=== PATIENT | female | born 1985 | race Two or more races ===

== ENCOUNTER 2024-08-16 07:36 | Emergency (ER) | payer MEDICAID, SELFPAY ==
[2024-08-16 07:36] VITALS: BMI 30.9
[2024-08-16 07:44] VITALS: BP 127/86; PULSE 91; RESP 17; TEMP 36.8; O2SAT 96
--- NOTE | 2024-08-16 07:58 | XR_ITS ---
Examination: Complete OB ultrasound, less than 14 weeks, transabdominal Date and time of exam: August 16, 2024 1015 hours INDICATIONS: Onset left-sided pelvic pain today Technique: Obstetrical ultrasound images less than 14 weeks performed via transabdominal imaging Findings: A normal shaped single intrauterine gestation is present in the uterus. Uterus 13.8 cm pole 1.6 cm corresponds to 8 weeks 0 days gestational age Cardiac motion 155 BPM Ultrasonographic survey of visible and placental structures unremarkable. Amniotic fluid volume appears appropriate for this estimated gestational age. Right ovary 2.7 x 3.1 cm arterial flow Left ovary 3.9 x 3.4 cm arterial flow 26 mm corpus luteum cyst IMPRESSION: Viable intrauterine gestation 8 weeks 0 days
[2024-08-16] MEDS: ACETAMINOPHEN 500 MG TABLET 1000 MG PO (08:10)
[2024-08-16] MEDS: PROMETHAZINE/DM SYRUP 5 ML DOSE PO (08:10)
--- NOTE | 2024-08-16 08:13 | PC.NURSE ---
CALLED RT AT THIS TIME TO REQUEST TREATMENT, STATES HE WILL COME ADMINISTER IT.
[2024-08-16 08:25] VITALS: PULSE 89
[2024-08-16] MEDS: ALBUTEROL RT 2.5 MG/0.5 ML NEBU INH (08:25)
[2024-08-16] MEDS: SODIUM CHLORIDE RT SOL 0.9% 3 ML NEBU INH (08:25)
[2024-08-16 08:28] VITALS: PULSE 83; RESP 16; O2SAT 99
[2024-08-16 08:44] LABS: Basophils % (Auto) 0 % (0-2.5); Eosinophils # (Auto) 0.1 Thou/mm3 (0.0-0.5); Eosinophils % (Auto) 1 % (0-10); Hemoglobin 12.6 g/dL (12.0-16.0); Immature Granulocytes % (Auto) 0 % (0-0); Immature Granulocytes Auto 0.02 Thou/mm3 (0.00-0.00); Lymphocytes # (Auto) 2.3 Thou/mm3 (1.0-4.8); Lymphocytes % (Auto) 28 % (10-50); Mean Corpuscular Hemoglobin 31.6 pg (25.0-35.0); Mean Corpuscular Volume 90 fL (80-100); Monocytes # (Auto) 0.4 Thou/mm3 (0.0-0.8); Monocytes % (Auto) 4 % (0-12); Neutrophils # (Auto) 5.3 Thou/mm3 (1.8-7.7); Neutrophils % (Auto) 66 % (37-80); Nucleated Red Blood Cell % 0 /100 WBC (0); Platelet Count 324 Thou/mm3 (140-440); RDW Standard Deviation 42.5 fL (36.4-46.3); Red Blood Count 3.99 Miln/mm3 (4.00-5.20); White Blood Count 8.1 Thou/mm3 (3.6-11.0)
[2024-08-16 09:05] LABS: Alanine Aminotransferase 11 U/L (10-49); Albumin, Serum 4.3 gm/dL (3.5-5.0); Albumin/Globulin Ratio 1.5 (1.2-2.2); Alkaline Phosphatase 52 U/L (46-116); Anion Gap 9 (7-16); Aspartate Amino Transferase 10 U/L (0-34); BUN/Creatinine Ratio 16 Ratio (12-20); Bilirubin,Total 0.3 mg/dL (0.3-1.2); Blood Urea Nitrogen 8 mg/dL (9-23); Calcium 9.7 mg/dL (8.3-10.6); Calcium (Corrected) 9.7 mg/dL (8.5-10.1); Carbon Dioxide 24.7 mMol/L (20.0-31.0); Chloride 105 mMol/L (98-107); Creatinine (Component) 0.5 mg/dL (0.6-1.3); Estimated Creatinine Clearance 160.8 mL/min (>60); Globulin 2.8 gm/dL (2.3-3.5); Glucose 128 mg/dL (74-106); Osmolality,Calculated 277 (275-295); Potassium 3.8 mMol/L (3.4-5.1); Sodium 139 mMol/L (136-145); Total Protein 7.1 gm/dL (5.7-8.2); eGFR > 60 See Note
--- NOTE | 2024-08-16 09:06 | EDNOTE_ITS ---
Upper Respiratory Inf. RME/HPI General Chief Complaint: Shortness of Breath/Dyspnea Stated Complaint: COUGH/SOBX1 DAY Time Seen by Provider: 08/16/24 07:43 Source: patient Arrival date/time: 08/16/24 07:36 This is a 38-year-old female who presents to the emergency department with complaints of cough and shortness of breath x 1 day. She does report that she developed a cough on Tuesday and since then has been coughing intermittently. Has coughing spells that has led to upper chest pain and shortness of breath. Denies any history of asthma. Does report she stop smoking 2 months ago due knowledge and she was . She does report 3 para 2 A0. Does report she is having some mild tenderness to her pelvic area is unsure if it is due to the coughing spells. Denies fever, chills no dysuria no vaginal bleeding. Mode of arrival: ambulatory Limitations: no limitations Related Data Previous Rx's ?Medication ?Instructions ?Recorded azithromycin 250 mg tablet See Rx Instructions PO .COM PLEX #6 08/16/24 (Zithromax Z-Navarro) tabs albuterol sulfate 90 mcg/actuation 2 puff inhalation Q 6H PRN 08/17/24 aerosol inhaler (Ventolin HFA) shortness of breath or wheezing #8.5 grams amoxicillin 500 mg capsule 500 mg PO BID 5 days #10 ca ps 08/17/24 Allergies Allergy/AdvReac Type Severity Reaction Status Date / Time No Known Allergies Allergy Verified 08/16/24 07:39 Review of Systems Review of Systems Systems Reviewed: All systems reviewed, normal except as documented Narrative Review of Systems: Gen: No fever, no chills, no weight loss EYES: No discharge, no visual changes, no pain HEENT: No ear pain, no congestion, no sore throat PULM: +shortness of breath, + cough, no congestion CV: No chest pain, no dyspnea on exertion, no palpitations GI: No nausea, no vomiting, no diarrhea, no pain, no constipation : No frequency, no urgency, no dysuria Musc/skel: No joint pain, no back pain Skin: No rash Psyc: No hallucinations, no depression Heme/Lymph: No easy bleeding or bruising tendencies Neuro: No weakness, no headache ED Exam General Limitations: Present no limitations General appearance: Present alert and in no apparent distress Head Head exam: Present atraumatic Eye Eye exam: Present normal appearance, PERRL and EOMI ENT ENT exam: Present normal exam, normal oropharynx and mucous membranes moist Neck Neck exam: Present normal inspection, full ROM and trachea midline Chest Chest inspection: Present normal inspection and symmetric chest wall rise; Absent tenderness or rash Respiratory Respiratory exam: Present wheezes Expanded Respiratory Exam Location: Left: wheezes (Very mild wheeze.), Right: wheezes (Very mild wheeze.) and Upper: wheezes (Very mild wheeze.) Cardiovascular Cardiovascular exam: Present regular rate, normal rhythm and normal heart sounds Abdominal Exam Abdominal exam: Present soft and normal bowel sounds Extremities Exam Extremities exam: Present normal inspection and full ROM Back Exam Back exam: Present normal inspection and full ROM Neurological Exam Neurological exam: Present alert, oriented X3 and CN II-XII intact Psychiatric Psychiatric exam: Present normal affect and normal mood Skin Skin exam: Present warm, dry, intact and normal color Course Quality Measures none Orders Category Date Time Status US OB <= 14 weeks fetus Stat Exams 08/16/24 07:58 Completed ABO/RH Type Stat Lab 08/16/24 08:19 Completed Beta HCG,Quantitative Stat Lab 08/16/24 08:19 Completed CBC Stat Lab 08/16/24 08:19 Completed Comprehensive Metabolic Panel Stat Lab 08/16/24 08:19 Completed Urinalysis Stat Lab 08/16/24 11:10 Completed Urine Culture Stat Lab 08/16/24 11:10 Received ALBUTEROL RT 0.5ml [Proventil Rt 0.5ml] Med 08/16/24 07:58 Discontinued 2.5 mg INH X1 ONE Acetaminophen Tab [Tylenol ES Tab] Med 08/16/24 08:02 Discontinued 1,000 mg PO X1 ONE Ondansetron Odt [Zofran Odt] Med 08/16/24 09:53 Discontinued 4 mg PO X1 ONE Promethazine/Dextromethorph [Phenergan Dm Syrup] Med 08/16/24 08:03 Discontinued 5 ml PO X1 ONE Sodium Chloride Rt Jessica 0.9% [NS Rt Jessica 0.9%] Med 08/16/24 07:58 Discontinued 3 ml INH PRN PRN Vital Signs Vital signs: Vital Signs Temperature 98.3 F 08/16/24 07:44 Pulse Rate 91 08/16/24 07:44 Respiratory Rate 17 08/16/24 07:44 Blood Pressure 127/86 H 08/16/24 07:44 Pulse Oximetry (%) 96 08/16/24 07:44 Oxygen Delivery Method Room Air 08/16/24 07:44 Upper Respiratory Infection MDM Narrative MDM Narrative:: 8-year-old female presents to the emergency department with complaints of coughing for 1 week patient reports that coughing spells has made her chest hurt. She is currently 8 weeks of gestation. Mild lower abdominal pain I did obtain some simple labs and ultrasound. All her results were reassuring. Patient ultrasound demonstrates viable uterine . She did receive a breathing treatment cough syrup which improved her symptoms. No hypoxemia vital signs stable. I will discharge patient treatment of bronchitis. Patient data External records reviewed:: [facility] previous records Clinical information provided by:: patient Social determinants that could affect healthcare access:: none Patient has the following chronic illnesses:: None How is presenting disease/condition affected by chronic disease/condition?: no chronic disease Evaluation data The following diagnostics were reviewed and interpreted by me:: lab results and radiology exam(s) Lab and/or radiology exams considered but not ordered:: Chest x-ray however the patient is . Lung sounds mild wheeze however no rhonchi or crackles significa for pneumonia. Interpretation Summary: Examination: Complete OB ultrasound, less than 14 weeks, transabdominal Date and time of exam: August 16, 2024 1015 hours INDICATIONS: Onset left-sided pelvic pain today Technique: Obstetrical ultrasound images less than 14 weeks performed via transabdominal imaging Findings: A normal shaped single intrauterine gestation is present in the uterus. Uterus 13.8 cm pole 1.6 cm corresponds to 8 weeks 0 days gestational age Cardiac motion 155 BPM Ultrasonographic survey of visible and placental structures unremarkable. Amniotic fluid volume appears appropriate for this estimated gestational age. Right ovary 2.7 x 3.1 cm arterial flow Left ovary 3.9 x 3.4 cm arterial flow 26 mm corpus luteum cyst IMPRESSION: Viable intrauterine gestation 8 weeks 0 days Medications / Prescriptions Medications or Prescriptions considered but not ordered:: No Medication administrations:: Medication Administration History Discontinued Medications Acetaminophen (Acetaminophen 500 Mg Tablet) 1,000 mg PO X1 ONE Stop: 08/16/24 08:03 Last Admin: 08/16/24 08:10 Dose: 1,000 mg Documented By: TM Albuterol (Albuterol Rt 2.5 Mg/0.5 Ml Nebu) 2.5 mg INH X1 ONE Stop: 08/16/24 07:59 Last Admin: 08/16/24 08:25 Dose: 2.5 mg Documented By: Ondansetron HCl (Ondansetron Odt 4 Mg Tabrap) 4 mg PO X1 ONE; Protocol Stop: 08/16/24 09:54 Last Admin: 08/16/24 10:59 Dose: 4 mg Documented By: TM Promethazine HCl/Dextromethorphan (Promethazine/Dm Syrup 5 Ml Dose) 5 ml PO X1 ONE; Protocol Stop: 08/16/24 08:04 Last Admin: 08/16/24 08:10 Dose: 5 ml Documented By: FLORINDA Sodium Chloride (Sodium Chloride Rt Jessica 0.9% 3 Ml Nebu) 3 ml INH PRN PRN PRN Reason: SOLN Stop: 09/15/24 07:57 Last Admin: 08/16/24 08:25 Dose: 3 ml Documented By: MR All medications administered and effective Consultations Consultation(s) initiated? (list below): No Diagnosis Upper Respiratory Differential Diagnosis: upper respiratory infection, otitis media, sinusitis, viral infection, bronchitis and other (UTI, threatened .) Most likely diagnosis given after review of the tests above:: Most likely bronchitis Admission Indicated Admission indicated?: not indicated Admission Request Was there a request for admission?: No Disposition Plan Disposition Plan: Discharge Discharge Attestation Discharge Attestation: The patient and all family members were given an opportunity to ask questions and understood the discharge instructions. Discharge instructions specifically effects, indications for sooner follow up or return to the emergency department, and the expected course of current diagnosis. Patient condition: Stable Discharge Plan Plan Patient Disposition: HOME (Self Care) Prescriptions/Referrals Prescriptions/Med Rec: New azithromycin [Zithromax Z-Navarro] 250 mg tablet See Rx Instructions .ROUTE .COMPLEX Qty: 6 0RF Rx Instructions: For 250 mg dose pack: take 500 mg today (day 1), then 250 mg for 4 days (days 2-5) albuterol sulfate [Ventolin HFA] 90 mcg/actuation HFA aerosol inhaler 2 puff inhalation Q6H PRN (Reason: shortness of breath or wheezing) Qty: 8.5 0RF amoxicillin 500 mg capsule 500 mg PO BID 5 Days Qty: 10 0RF Discontinued azithromycin 250 mg tablet See Rx Instructions .ROUTE .COMPLEX Qty: 6 0RF Rx Instructions: For 250 mg dose pack: take 500 mg today (day 1), then 250 mg for 4 days (days 2-5) Referrals: Yessi Vieyra FNP [Primary Care Provider] - In 1 week Problem List Clinical Impression: URI with cough and congestion Patient/Caregiver Discharge Instructions Discharge Activity: activity as tolerated Education Materials: ED URI, Viral, No Abx (Adult) Additional Instructions: You can continue to take cough medication as directed. Tylenol for pain or fever. Make sure you follow-up with your primary doctor Drink plenty of fluids. Return to the emergency department is any worsening symptoms change in condition. Print Language: Turkmen Stand Alone Forms: Michelle Award Info., Patient Portal Info Letter ASTRID/GELA Supervising Physician ASTRID/GELA Supervising Physician: Dr Austin
[2024-08-16 09:38] LABS: Beta HCG,Quantitative 67860 mIU/mL (<5.0)
[2024-08-16] MEDS: ONDANSETRON ODT 4 MG TABRAP PO (10:59)
[2024-08-16 11:14] LABS: Collection Type, Urine Clean Catch
[2024-08-16 11:19] LABS: Bilirubin,Urine Negative (Negative); Blood,Urine Negative (Negative); Clarity,Urine Clear (Clear/Hazy); Color,Urine Lt-Yellow (Lt Yel-Yel); Glucose, Urine Negative (Negative); Ketones,Urine Negative (Negative); Leukocyte Esterase,Urine Negative (Negative); Nitrite,Urine Negative (Negative); PH,Urine 6.5 (5.0-7.0); Protein,Urine Negative (Neg - Trace); RBC,Urine 1 /hpf (0-3); Specific Gravity,Urine 1.008 (1.001-1.035); Squamous Epithelial Cell,Urine 1 /hpf (0-5); Urobilinogen,Urine Negative mg/dL (0.0-1.0); WBC,Urine 1 /hpf (0-5)
== END 2024-08-16 11:24 | disposition home or self-care (01) ==
PROVIDERS: Nurse Practitioner Primary Care; Emergency Provider Emergency Medicine; PCP Nurse Practitioner Family
DX: O99.511 Diseases of the respiratory system complicating pregnancy, first trimester (principal); J06.9 Acute upper respiratory infection, unspecified; O26.891 Other specified pregnancy related conditions, first trimester; R10.2 Pelvic and perineal pain; Z87.891 Personal history of nicotine dependence; Z3A.08 8 weeks gestation of pregnancy
CPT/HCPCS: 36415; 76801; 80053; 81001; 84702; 85025; 86900; 86901; 87086; 94640; 99284; Q0162; A9270

== ENCOUNTER → 2024-10-04 | Outpatient (CLI) | payer MEDICAID, SELFPAY ==
--- NOTE | 2024-10-04 12:04 | XR_ITS ---
Examination: Complete OB ultrasound greater than 14 weeks Date and time of exam: October 04, 2024 1219 hrs. Indications: Unknown size and dates Findings: Viable intrauterine single fetus with single amniotic sac presentation cephalic spine posterior Cardiac motion 136 BPM Placenta anterior grade 1 Umbilical cord insertion seen Cervix 4.0 cm closed Right ovary 2.8 cm arterial flow Left ovary 3.91 arterial flow, 20 mm cyst Composite estimated gestational age based on BPD, head circumference, abdominal circumference, femur length is 15 weeks 6 days Estimated weight 133 g. Survey of intracranial anatomy, spinal anatomy, abdominal anatomy, four-chamber heart performed with no abnormalities identified. Impression: Viable intrauterine gestation 15 weeks 6 days Estimated weight 133 g.
== END | disposition home or self-care (01) ==
LOC: SDIM 11:55
PROVIDERS: PCP Obstetrics & Gynecology; Referring Provider Obstetrics & Gynecology; Visit Provider Obstetrics & Gynecology
DX: O26.841 Uterine size-date discrepancy, first trimester (principal); Z3A.15 15 weeks gestation of pregnancy
CPT/HCPCS: 76805

== ENCOUNTER 2025-03-04 09:04 | Outpatient (AMB) | payer MEDICAID, SELFPAY ==
[2025-03-04 09:15] VITALS: BP 112/75; PULSE 101; RESP 16; TEMP 36.2; O2SAT 98; BMI 34.7
--- NOTE | 2025-03-04 09:15 | AMB.OBINITIA ---
Vital Signs 03/04/25 09:15 Height 1.63 m Height Method Stated Weight 92.306 kg Weight Measurement Method Standing Scale BMI 34.7 BP 112/75 Blood Pressure Source Automatic Cuff Blood Pressure Location Left Upper Arm Position Sitting Respiration 16 Pulse 101 H Pulse Source Monitor Temp 97.2 F Temp Source Oral Pulse Oximetry (%) 98 Oxygen Delivery Method Room Air Allergies/Home Meds Allergies & Medications Allergies No Known Allergies Allergy (Verified 03/04/25 09:16) Medication Reconciliation azithromycin 250 mg tablet (Zithromax Z-Navarro) See Rx Instructions PO .COMPLEX #6 tabs 08/16/24 [Rx Confirmed 03/04/25] albuterol sulfate 90 mcg/actuation aerosol inhaler (Ventolin HFA) 2 puff inhalation Q6H PRN shortness of breath or wheezing #8.5 grams 08/17/24 [Rx Confirmed 03/04/25] Intake Visit Data Collection New Patient or Established: Established Patient (seen at [facility] within 3 years) Reason for Visit:: OB TRANSFR RECORDS GIVEN TO STELLA Seen by Clinical Staff ONLY (RN/MA): No Multi Operation Forming Machine Setter Required: No Do You Feel Safe at Home: Yes Authorities Contacted: N/A PCP or OBGYN visit in last 3 months: Yes Hx Now: Yes Are you currently on any form of Control: No Last menstrual period: 06/12/24 Pain Present Currently: No Pain Scale Used: Schrader-Rogers/Numerical Pain scale:: 0 Smoking Status Smoking Status: Never smoker Questionnaires Covid-19 Vaccine Questionnaire Has patient been vacinated for Covid-19 Have you been vacinated for Covid-19: Yes PHQ-9 PHQ-2 Over the last 2 weeks, how often have you been bothered by any of the following problems? 1. Little interest or pleasure in doing things: not at all 2. Feeling down, depressed, or hopeless: not at all Total score: 0 PHQ-9 3. Trouble falling or staying asleep, or sleeping too much: Not at all 4. Feeling tired or having little energy: Not at all 5. Poor appetite or overeating: Not at all 6. Feeling bad about yourself - or that you are a failure or have let yourself or your family down: Not at all 7. Trouble concentrating on things, such as reading the newspaper or watching television: Not at all 8. Moving or speaking so slowly that other people could have noticed? - Or the opposite - being so fidgety or restless that you have been moving around a lot more than usual: not at all 9. Thoughts that you would be better off or of hurting yourself in some way: Not at all Total score: 0 If you checked off any problems, how difficult have these problems made it for you to do your work, take care of things at home, or get along with other people?: not difficult at all Source: Developed by Drs. Jose Diamond, Shantal Nagel, Charlie Coates and colleagues, with an educational claudia from [employer]. Depression screen completed yes Social History Living Situation History Marital Status: Lives With: Family Housing: House Tobacco History Smoking Status: Never smoker Second Hand Smoke Exposure: No Alcohol History Alcohol Intake: Never Domestic Abuse History Do You Feel Safe at Home: Yes History of Present Illness HPI Narrative 39-year-old 3 para 2 for OBI. Patient is a transfer from [facility] with records. Her last. June 12, 2024. Estimated due date March 19, 2025. History of asthma. Patient uses inhaler as needed. And also obesity. She was followed with ultrasounds at [facility] for AMA. In normal anatomy. Patient denies leaking, denies bleeding, reports good movement. A+, antibody screen negative, RPR nonreactive, rubella nonimmune, hepatitis B negative, HIV negative, hep C negative, GC and Chlamydia were negative. 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 She had negative AFP and NIPT and carrier screens and 1 hour was negative as well OB Initial Visit OB Flowsheet OB Flowsheet Initial Weight: Not Recorded Date <del>?</del> EGA Weight BP Alb Glu CTX Pres Fundal ht FHR Mov Dilation Station Effacement Hx Notes Visit Note 03/04/25 <del>?</del> 37w 6d 92.306 kg 112/75 occasional cephalic 37 135 active 39-year-old 3 para 2 for OBI with records. Reports movement. Denies leaking. Denies contractions. Denies social habits. Patient's for transfer from [facility]. She has not had any problems with GBS today. Discussed labor precautions and kick count twice a day. Discussed ER precautions. Return in a week for OB check. Menstrual History Menstrual reliability: definite Flow: normal Menstrual regularity: regular Monthly: Yes Age at menarche: 18 On control pills at conception: No OB History : 3 Para: 2 Hx # Pregnancies: 0 Hx Total # of Abortions (Spontaneous & Elective): 0 # of Living Children: 2 Delivery History 1st : Child's name: NOT PROVIDED date: 12/28/05 sex: female Gestational age at delivery (weeks): 40 Delivery type: vaginal weight (lbs): 3175.147 g History of depression before or after : No 2nd : Child's name: NOT PROVIDED date: 12/24/06 sex: male Gestational age at delivery (weeks): 40 Delivery type: vaginal weight (lbs): 2721.554 g History of depression before or after : No Infection History & Risk Evaluation History of STDs: none HIV risk evaluation: low risk Hepatitis B risk evaluation: low risk Patient or partner has history of Genital Herpes: No Varicella/chicken pox status: immunized Genetic Screening & History Genetic Screening/Teratology Counseling - Includes patient, baby's father, or anyone in either family with: 1. Patient's age 35 years or older as of estimated date of delivery: Yes 2. Thalassemia (South Korean, Croatian, Mediterranean, or Background); MCV less than 80: No 3. Neural Tube Defect (Meningomyelocele, Spina Bifida, or Anencephaly): No 4. Congenital Heart Defect: No 5. Down Syndrome: No 6. Colton-Sachs (Ashkenazi Episcopalian, Cajun, Hebrew Yemeni): No 7. Kiran Disease (Ashkenazi Episcopalian): No 8. Familial Dysautonomia (Ashkenazi Episcopalian): No 9. Sickle Cell Disease or Trait (): No 10. Hemophilia or other blood disorders: No 11. Muscular Dystrophy: No 12. Cystic Fibrosis: No 13. Dai's Chorea: No 14. Mental Retardation/Autism: No 15. Other inherited genetic or chromosomal disorder: No 16. Maternal Metabolic Disorder (EG,TYPE 1 Diabetes, PKU): No 17. Patient or baby's father had a child with defects not listed above: No 18. Recurrent loss or a stillbirth: No 19. Medications (including supplements, vitamins, herbs or otc drugs)/illicit/recreational drugs/alcohol since last menstrual period: No 20. Any other: No Infection History 1. Live with someone with TB or exposed to TB: No 2. Rash or viral illness since last menstrual period: No 3. Hepatitis B,C: No Other (see comments) Source: [employer] Review of Systems Review of Systems Systems Reviewed: All systems reviewed, normal except as documented Exam General Limitations: no limitations General Appearance: alert, in no apparent distress, comfortable, cooperative, healthy appearing, well developed and well groomed Head Head exam: atraumatic, normocephalic and normal inspection Resp Respiratory exam: Present normal lung sounds bilaterally Card Cardiovascular exam: Present regular rate, normal rhythm and normal heart sounds Psych Psychiatric exam: Present normal affect and normal mood Office Procedures OB Clinic LOC & Office Proc's Nursing/Assessment Patient Status: Established Patient OB Clinic Nursing Assessment: Medication Reconciliation, Update PMH in EMR and Vital Signs OB Clinic Coordination of Care: Education Complex Pt/Fam, Consent,records obtained, informed consent, Lab and Imaging orders and Staff clarify orders Special Needs: Heart tones Established Patient Charge Established Patient Point Assignment: 110 Established Patient Point Charge: EP Level 3 (80-115) Assessment & Plan Diagnosis / Problem List (1) Encounter for supervision of high risk in third trimester, antepartum: Status: Acute Plan Continue prenatals. Stop baby aspirin. Discussed labor precautions and kick count twice a day. GBS. Increase fluids. Discussed labor precautions. Return in a week OB check Additional Plan Follow Up: 1 Week (obc)
== END 2025-03-04 09:40 | disposition home or self-care (01) ==
LOC: HODSOBC 09:04
PROVIDERS: Supervising Provider Advanced Practice Midwife; Visit Provider Advanced Practice Midwife
DX: O09.523 Supervision of elderly multigravida, third trimester (principal); Z36.85 Encounter for antenatal screening for Streptococcus B; Z3A.37 37 weeks gestation of pregnancy
CPT/HCPCS: 99213; G0463

== ENCOUNTER 2025-03-12 02:10 | Inpatient (IN) | payer BC, MEDICAID, SELFPAY ==
[2025-03-12] VITALS (177 sets, daily range): BP systolic 96–197; BP diastolic 53–123; PULSE 75–150; RESP 16–99; TEMP 36.4–36.9; O2SAT 91–100; BMI 35.0
[2025-03-12] MEDS: Ampicillin Inj 2,000 MG in SODIUM CHLORIDE 0.9% (POP) 100 ML 200 MG IV (03:31)
[2025-03-12 04:16] LABS: Basophils # (Auto) 0.0 Thou/mm3 (0.0-0.2); Basophils % (Auto) 0 % (0-2.5); Eosinophils # (Auto) 0.0 Thou/mm3 (0.0-0.5); Eosinophils % (Auto) 1 % (0-10); Hematocrit 30.5 % (36.0-46.0); Hemoglobin 10.0 g/dL (12.0-16.0); Immature Granulocytes Auto 0.02 Thou/mm3 (0.00-0.00); Lymphocytes # (Auto) 2.1 Thou/mm3 (1.0-4.8); Lymphocytes % (Auto) 27 % (10-50); Mean Corpuscular HGB Conc 32.8 g/dl (31.0-37.0); Mean Corpuscular Hemoglobin 29.5 pg (25.0-35.0); Mean Corpuscular Volume 90 fL (80-100); Monocytes # (Auto) 0.5 Thou/mm3 (0.0-0.8); Monocytes % (Auto) 6 % (0-12); Neutrophils # (Auto) 5.0 Thou/mm3 (1.8-7.7); Neutrophils % (Auto) 66 % (37-80); Nucleated Red Blood Cell # 0.00 Thou/mm3 (0.00-0.00); Nucleated Red Blood Cell % 0 /100 WBC (0); Platelet Count 276 Thou/mm3 (140-440); RDW Standard Deviation 45.7 fL (36.4-46.3); Red Blood Count 3.39 Miln/mm3 (4.00-5.20); White Blood Count 7.6 Thou/mm3 (3.6-11.0)
--- NOTE | 2025-03-12 04:41 | PD.LDHP ---
Documentation for date of: 03/12/25 OB Labor/Induct. HPI History of Present Illness Chief complaint: leaking fluid : 3 Para: 2 Term pregnancies: 2 pregnancies: 0 Living children: 2 History of Abortions: Spontaneous and Elective: 0 History of Vaginal deliveries: 2 History of sections: No Date of last menstrual period: 06/12/24 ANIBAL: 03/19/25 Gestational Age (weeks): 39 Gestational Age (days): 0 Gestational age based on last menstrual period: 39 History of present illness: 41-year-old 3 para 2 for complaints of leaking clear fluid since 1:30 in the morning and contractions. Patient is been followed at [facility] with Dr. Souza. She brought her records to the [facility] medical OB clinic and she has had 1 visit at 37 weeks 6 patient also had several anatomy scans with [facility] for advanced maternal age. Last. June 12, 2024. This gives EDC March 19, 2025. Patient has a history of asthma and she uses an inhaler. She is not complaining of any respiratory discomforts or complaints and she is has not had an asthma attack with the . Denies social habits. Denies surgeries. Reports movement patient is A+, antibody screen negative, RPR nonreactive, rubella immune, hepatitis B negative, hep C negative, HIV negative, GC and Chlamydia were negative. Her 1 hour GTT was normal. Patient had negative AFP/NIPT/carrier screens. She is GBS positive History of Present Dating criteria: LMP confirmed by 2nd trimester US Ultrasounds: normal mid trimester US Obstetrical complications: none Medical complications: respiratory (asthma. MDI) Review of Systems Review of Systems Systems Reviewed: All systems reviewed, normal except as documented Past Medical History Surgical History SURGICAL: Negative Section Meds Home Medications and Allergies Allergies Allergy/AdvReac Type Severity Reaction Status Date / Time No Known Allergies Allergy Verified 03/12/25 02:58 OB Exam Physical Exam Vital signs: Temp Pulse BP Pulse Ox 98.2 F 86 116/62 98 03/12/25 03:54 03/12/25 03:54 03/12/25 03:54 03/12/25 04:36 Narrative: Vital signs are stable afebrile. Lungs are clear no wheezes. Gravid abdomen. Gynecoid pelvis. Estimated weight 7 pounds 15 ounces. Vaginal examination was 60%, 4, -3. Vertex. Leaking clear fluid. heart category 1 with accelerations and moderate variability and irregular mild contraction Detailed Labor and Delivery Exam Dilation (cm): 4 Effacement (%): 80 Cervix position: mid station: -3 Consistency: soft Presentation: Vertex Cervical ripeness score: 8 Membranes: ruptured Baseline heart rate: 145 monitor accelerations: 15x15 monitor decelerations: None exterminator variability: Moderate (11-25) Contraction frequency (min): irregular Contraction duration (sec): 40 Tachysystole: No Contraction intensity: Mild OB Results Labs 03/12/25 03:00 Labs: Short CBC 03/12/25 Range/Units 03:00 WBC 7.6 (3.6-11.0) Thou/mm3 Hgb 10.0 L (12.0-16.0) g/dL Hct 30.5 L (36.0-46.0) % Plt Count 276 (140-440) Thou/mm3 OB Assessment & Plan Assessment and Plan (1) Normal labor and delivery: Status: Acute Additional Plan Induction method: per pitocin protocol Plan: augmentation, GBS prophylaxis tx and consult MD osborn
--- NOTE | 2025-03-12 04:50 | XR_ITS ---
Examination: age Limited Technique: Limited transabdominal sonographic images pelvis Indications: Labor evaluation, unknown weight Findings: Estimated weight 3111.8 g Cardiac motion 114 bpm Impression: Estimated weight 3111.8 g
[2025-03-12 04:55] LABS: Syphilis Nonreactive (Nonreactive)
[2025-03-12] MEDS: Ampicillin Inj 1,000 MG in SODIUM CHLORIDE 0.9% (Popper) 50 ML 50 MG IV (08:03)
[2025-03-12] MEDS: OXYTOCIN in NS 30 units 30 UNIT/500 ML BAG IV (09:31)
[2025-03-12] MEDS: RINGERS LACTATED 1000 ML 1,000 ML 100 ML IV (10:40)
[2025-03-12] MEDS: MINERAL OIL 30 ML UDC TOP (11:56)
[2025-03-12] MEDS: OXYTOCIN INJ 10 UNIT/ML VIAL IM (11:57)
[2025-03-12] MEDS: OXYTOCIN in NS 20 units 20 UNIT/1,000 ML BAG 125 UNIT IV (11:58)
--- NOTE | 2025-03-12 12:32 | OBDSUM_ITS ---
Data ([place]) Data Hx Section: No : 3 Term: 2 : 0 Livin Abortions: Spontaneous & Theraputic: 0 Delivery Data ([place]) Labor Data Initiation of labor: Augmentation Induction/Augmentation Agent: Pitocin ROM date: 03/12/25 ROM time: 01:30 Amniotic membrane rupture type: Spontaneous Amniotic fluid description: Clear Delivery Data Date of arrival to unit: 03/12/25 Time of arrival to unit: 02:10 Onset of labor date: 03/12/25 Onset of labor time: 04:32 Complete dilation date: 03/12/25 Complete dilation time: 11:10 Tribune delivery date: 03/12/25 Tribune delivery time: 11:49 Gestational age (weeks): 39 Gestational age (days): 0 Placenta delivery date: 03/12/25 Placenta delivery time: 11:55 Stage 1 total time: Labor - Stage 1 Duration 6 hours and 38 minutes Delivered by: Justine Feliciano Delivery nurse: ryder peterson [place]orn nurse: vipin scherer rn Small Brake Form Operator at delivery: No Support person(s) at delivery: fob, mother of patient Other staff at delivery: pc student rn jane pc student rn moon pc student rn pippa Delivery Method Delivery method: Normal Vaginal Delivery Presentation: Vertex position: OA Anesthesia Type Anesthesia Type: Epidural Delivery Room Medications Delivery room medications: Pitocin 10 u IM, Pitocin 20 u IV, Cytotec 800 VA and other (txa x2) Placenta Placenta delivery description: Spontaneous (inspected,intact) Cord blood sent to lab: Yes cord blood collection: Cord Blood Type, Arterial Cord Blood Gas and Venous Cord Blood Gas Episiotomy Episiotomy description: None Lacerations #1: Periurethral: bilateral and bilateral labial, small vag lac Perineal repair Sutures used for repair: 3.0 Vicryl EBL Estimated blood loss (ml): 400 Umbilical Cord cord description: 3 Vessels, Nuchal Cord, Tight, Reduced and Around Body Tribune Data ([place]) Tribune Data order: 1 Tribune's gender: Female Identification band number: [id number] weight (gms): 3360 g Weight (pounds): 7 lbs and 6.5 ozs Tribune length: 52 cm 1 minute: 7 5 minutes: 9
[2025-03-12 21:41] LABS: Basophils # (Auto) 0.0 Thou/mm3 (0.0-0.2); Basophils % (Auto) 0 % (0-2.5); Eosinophils # (Auto) 0.0 Thou/mm3 (0.0-0.5); Eosinophils % (Auto) 0 % (0-10); Hematocrit 31.0 % (36.0-46.0); Hemoglobin 10.3 g/dL (12.0-16.0); Immature Granulocytes Auto 0.06 Thou/mm3 (0.00-0.00); Lymphocytes # (Auto) 2.0 Thou/mm3 (1.0-4.8); Lymphocytes % (Auto) 15 % (10-50); Mean Corpuscular HGB Conc 33.2 g/dl (31.0-37.0); Mean Corpuscular Hemoglobin 29.7 pg (25.0-35.0); Mean Corpuscular Volume 89 fL (80-100); Monocytes # (Auto) 0.6 Thou/mm3 (0.0-0.8); Monocytes % (Auto) 4 % (0-12); Neutrophils # (Auto) 11.0 Thou/mm3 (1.8-7.7); Neutrophils % (Auto) 80 % (37-80); Nucleated Red Blood Cell # 0.00 Thou/mm3 (0.00-0.00); Nucleated Red Blood Cell % 0 /100 WBC (0); Platelet Count 245 Thou/mm3 (140-440); RDW Standard Deviation 44.6 fL (36.4-46.3); Red Blood Count 3.47 Miln/mm3 (4.00-5.20); White Blood Count 13.8 Thou/mm3 (3.6-11.0)
[2025-03-13 03:15] VITALS: BP 120/77; PULSE 98; RESP 16; TEMP 36.8; O2SAT 96
[2025-03-13] MEDS: IBUPROFEN TAB 400 MG TABLET 800 MG PO (03:33)
[2025-03-13 07:14] VITALS: BP 109/72; PULSE 82; RESP 16; TEMP 36.5; O2SAT 98
--- NOTE | 2025-03-13 07:36 | ESPR_ITS ---
Subjective Subjective Interval history: No complaints of pain. No dizziness. Bonding and breast-feeding Exam Vital Signs Temp Pulse Resp BP Pulse Ox O2 Del Method 98.3 F 98 16 120/77 96 Room Air 03/13/25 03:15 03/13/25 03:15 03/13/25 03:15 03/13/25 03:15 03/13/25 03:15 03/13/25 03:15 Narrative Exam Vital signs steerable afebrile. Breasts are soft. Fundus firm below the umbilicus. Perineum is intact. She had multiple lacerations in the vagina. No swelling. Small lochia. Uterus well involuted. Negative Homans' sign. 2+ DTRs Objective Labs 03/12/25 21:23 Labs: Laboratory Results - last 24 hr 03/12/25 03/12/25 03:00 21:23 WBC 13.8 H D RBC 3.47 L Hgb 10.3 L Hct 31.0 L MCV 89 MCH 29.7 MCHC 33.2 RDW Std Deviation 44.6 Plt Count 245 D Neut % (Auto) 80 Lymph % (Auto) 15 [place] % (Auto) 4 Eos % (Auto) 0 Baso % (Auto) 0 Neut # (Auto) 11.0 H Lymph # (Auto) 2.0 [place] # (Auto) 0.6 Eos # (Auto) 0.0 Baso # (Auto) 0.0 Immature Gran # (Auto) 0.06 H Absolute Nucleated RBC 0.00 Immature Gran % 0 Nucleated RBC % 0 Blood Type A Positive Antibody Screen NEGATIVE Assessment & Plan Problem List (1) Normal labor and delivery: Status: Acute Assessment Comment Assessment comment: 24 hr pp Plan Comment Plan Comment: Discussed wound care and comfort measures. Discussed signs and symptoms of infection. Discussed ER precautions and danger signs. Discharge home today with baby. Continue vitamins and iron. Continue Tylenol or ibuprofen for pain. Return in 3 weeks for visit Time Spent With Patient Time: Total time spent is greater than 50% in coordination of care (as documented) at patient's floor/unit and/or counseling patient:
--- NOTE | 2025-03-13 07:38 | PD.LDDS ---
DS: Providers Provider Date of admission: 03/12/25 03:01 Primary care physician: Nadine Jackson PA-C Admitting Provider: Grace Sigala MD Attending Provider on Admission: Justine Feliciano CNM Consults: 03/12/25 13:13 Referral Routine Comment: Attending Provider on DC: Justine Feliciano CNM Discharging Provider: Justine Feliciano CNM DS: Diagnosis Problem List Completed Was Problem List Reviewed/Reconciled?: Yes Summary/Hosp Course Brief History: 41-year-old 3 para 2 for complaints of leaking clear fluid since 1:30 in the morning and contractions. Patient is been [facility] at [facility] with Dr. Souza. She brought her records to the [facility] medical OB clinic and she has had 1 visit at 37 weeks 6 patient also had several anatomy scans with [facility] for advanced maternal age. Last. June 12, 2024. This gives EDC March 19, 2025. Patient has a history of asthma and she uses an inhaler. She is not complaining of any respiratory discomforts or complaints and she is has not had an asthma attack with the . Denies social habits. Denies surgeries. Reports movement patient is A+, antibody screen negative, RPR nonreactive, rubella immune, hepatitis B negative, hep C negative, HIV negative, GC and Chlamydia were negative. Her 1 hour GTT was normal. Patient had negative AFP/NIPT/carrier screens. She is GBS positive Peripartum Data Delivery Method: Normal Vaginal Delivery Episiotomy Description: None Laceration Description: yes (Vaginal laceration. Bilateral labial and bilateral PU with repair) complications: none Time Spent with Patient Time attestation: Total time spent providing and/or coordinating discharge services: Exam Vital Signs Temp Pulse Resp BP Pulse Ox O2 Del Method 98.3 F 98 16 120/77 96 Room Air 03/13/25 03:15 03/13/25 03:15 03/13/25 03:15 03/13/25 03:15 03/13/25 03:15 03/13/25 03:15 Discharge Plan Plan Patient Disposition: HOME (Self Care) Patient condition on transfer: Stable Prescriptions/Referrals Prescriptions/Med Rec: No Action albuterol sulfate [Ventolin HFA] 90 mcg/actuation HFA aerosol inhaler 2 puff inhalation Q6H PRN (Reason: shortness of breath or wheezing) Qty: 8.5 0RF Referrals: Nadine Jackson PA-C [Primary Care Provider, Family Practice] Patient/Caregiver Discharge Instructions Meds to Beds: No Discharge Activity: resume usual activities Print Language: Pakistani Activity Restrictions/Additional Instructions: Discharge home today with baby. Discussed wound care and comfort measures for vaginal labial lacerations. Discussed danger signs and symptoms and ER precautions. Discussed signs symptoms of infection. No sex. Increase fluids. Continue vitamins and iron. Tylenol ibuprofen for pain. Return in 3 weeks visit Stand Alone Forms: Michelle Award Info., Patient Portal Info Letter Discharge Order Discharge Orders: Discharge (Routine); Ordered 03/13/25 Ordered By: Justine Feliciano Planned Discharge Date 03/13/25
[2025-03-13] MEDS: ACETAMINOPHEN 325 MG TABLET 650 MG PO (07:54)
[2025-03-13] MEDS: DIPHTH,PERTUSS(ACELL),TET VAC 0.5 ML SYR- ADULT IMi (07:55)
--- NOTE | 2025-03-13 08:05 | PC.NURSE ---
0800: TDAP vaccine administered by RN. RN discussed MMR non immune status and offered vaccine prior to discharge. Patient declined MMR vaccine administration at this time.
[2025-03-13 12:45] VITALS: BP 117/77; PULSE 84; RESP 20; TEMP 36.6; O2SAT 98
== END 2025-03-13 12:50 | disposition home or self-care (01) | DRG 807 ==
LOC: S4SX 12:53 → S4NX 15:18
PROVIDERS: Admitting Provider Obstetrics & Gynecology; PCP Physician Assistant; Visit Provider Advanced Practice Midwife
DX: O99.824 Streptococcus B carrier state complicating childbirth (principal); Z37.0 Single live birth; Z3A.39 39 weeks gestation of pregnancy; O69.1XX0 Labor and delivery complicated by cord around neck, with compression, not applicable or unspecified; O99.52 Diseases of the respiratory system complicating childbirth; J45.909 Unspecified asthma, uncomplicated; O71.4 Obstetric high vaginal laceration alone
CPT/HCPCS: 36415; 76815; 85025; 86780; 86850; 86900; 86901; 90715; J0290; J2590; J2795; J3010; J7050; J7120; S0191; A9270

== ENCOUNTER 2025-03-16 15:11 | Emergency (ER) | payer BC, MEDICAID, SELFPAY ==
[2025-03-16 15:12] VITALS: BMI 30.9
[2025-03-16 15:20] VITALS: BP 136/89; PULSE 78; RESP 16; TEMP 37; O2SAT 98
--- NOTE | 2025-03-16 15:36 | XR_ITS ---
Examination: Duplex scan of the lower extremity, unilateral left Date and time of exam: March 16, 2025, 1552 hrs. Indications: Left leg edema and pain today Technique: Duplex scan of the extremity veins using B-mode/grayscale imaging and Doppler spectral analysis and color flow Attention is directed to internal echogenicity, compression and augmentation involving these veins, color flow assessment, spectral analysis Findings: Major deep venous structures in the extremity demonstrate normal course and caliber. There is no evidence of deep vein thrombosis. Normal color flow and spectral analysis Impression: Negative for DVT..
--- NOTE | 2025-03-16 16:11 | EDNOTE_ITS ---
ED Extremity Problem RME/HPI General Chief complaint: Extremity Problem,Nontraumatic Stated complaint: LEFT LEG/FOOT SWELLING TODAY, HAD BABY 03/12 Time Seen by Provider: 03/16/25 15:39 Arrival date/time: 03/16/25 15:11 39-year-old female presents to the Emergency Department of complaint of left leg swelling patient reports that she had a baby 03/12 patient ports no fever nausea vomiting no shortness of breath no chest pain patient came to rule out blood clot Limitations: no limitations Related Data Previous Rx's ?Medication ?Instructions ?Recorded albuterol sulfate 90 mcg/actuation 2 puff inhalation Q 6H PRN 08/17/24 aerosol inhaler (Ventolin HFA) shortness of breath or wheezing #8.5 grams Allergies Allergy/AdvReac Type Severity Reaction Status Date / Time No Known Allergies Allergy Verified 03/16/25 15:13 Review of Systems Review of Systems Systems Reviewed: All systems reviewed, normal except as documented Constitutional Constitutional: Reports system reviewed and no additional complaints, except as documented, Denies fever(s) and Denies headache(s) Eyes Eyes: Reports system reviewed and no additional complaints, except as documented and Denies blurry vision ENT Ears, Nose, Mouth, and Throat: Reports system reviewed and no additional complaints, except as documented, Denies headache(s), Denies nasal congestion and Denies nasal discharge Cardiovascular Cardiovascular: Reports system reviewed and no additional complaints, except as documented, Denies chest pain and Denies dyspnea Respiratory Respiratory: Reports system reviewed and no additional complaints, except as documented, Denies chest congestion, Denies cough and Denies dyspnea Gastrointestinal Gastrointestinal: Reports system reviewed and no additional complaints, except as documented and Denies abdominal pain Musculoskeletal Musculoskeletal: Reports system reviewed and no additional complaints, except as documented and Reports other (Left lower extremity swelling) Integumentary/Breasts Skin/Breast: Reports system reviewed and no additional complaints, except as documented and Denies rash Neurologic Neurologic: Reports system reviewed and no additional complaints, except as documented, Reports as per HPI and Denies headache(s) Past Medical History Past Medical History NEUROLOGIC: Negative Neurological Disorders CARDIAC: Negative Cardiac Disorders or Congestive Heart Failure RESPIRATORY: Negative Chronic Obstructive Pulmonary Disease (COPD) GASTROINTESTINAL: Negative Gastrointestinal Disorders GENITOURINARY: Negative Genitourinary Disorders or Renal Disease REPRODUCTIVE: Negative Pelvic Inflammatory Disease MUSCULOSKELETAL: Negative Musculoskeletal Disorders ENDOCRINE: Negative Endocrine Disorders, Diabetes Mellitus Type 1 or Diabetes Mellitus Type 2 HEMATOLOGIC: Negative Blood Disorders OTHER HISTORY: Negative Autoimmune Disease, Blood Transfusions, Blood Transfusion Reaction, Anesthesia Reactions, MRSA, Clostridium Difficile or Cancer Family History FAMILY HISTORY: Positive Family Cancer (Grandmother breast cancer); Negative Family Cardiac Disorders, Family Surgery or Family Anesthesia Reaction Surgical History SURGICAL: Negative Section Social History SMOKING STATUS: Never smoker SECOND HAND EXPOSURE: No ED Exam General Limitations: Present no limitations General appearance: Present alert and in no apparent distress Head Head exam: Present atraumatic, normocephalic and normal inspection Eye Eye exam: Present normal appearance, PERRL and EOMI; Absent conjunctival injection ENT ENT exam: Present normal exam, normal oropharynx and mucous membranes moist Neck Neck exam: Present normal inspection, full ROM and trachea midline Chest Chest inspection: Present normal inspection and symmetric chest wall rise Respiratory Respiratory exam: Present normal lung sounds bilaterally Cardiovascular Cardiovascular exam: Present regular rate, normal rhythm and normal heart sounds Abdominal Exam Abdominal exam: Present soft and normal bowel sounds Extremities Exam Extremities exam: Present full ROM, tenderness (Left lower extremity swelling), normal capillary refill and pedal edema; Absent calf tenderness Back Exam Back exam: Present normal inspection and full ROM; Absent tenderness Neurological Exam Neurological exam: Present alert, oriented X3 and CN II-XII intact Psychiatric Psychiatric exam: Present normal affect and normal mood Skin Skin exam: Present warm, dry, intact and normal color Course Quality Measures none Orders Category Date Time Status US venous doppler LE LT Stat Exams 03/16/25 15:36 Taken Vital Signs Vital signs: Vital Signs Temperature 98.6 F 03/16/25 15:20 Pulse Rate 78 03/16/25 15:20 Respiratory Rate 16 03/16/25 15:20 Blood Pressure 136/89 H 03/16/25 15:20 Pulse Oximetry (%) 98 03/16/25 15:20 Oxygen Delivery Method Room Air 03/16/25 15:20 O2 saturation 98% on room air within normal limits Extremity Problem MDM Narrative MDM Narrative:: 39-year-old female presents to the Emergency Department of complaint of left leg swelling patient reports that she had a baby 03/12 patient ports no fever nausea vomiting no shortness of breath no chest pain patient came to rule out blood clot On exam patient well-appearing patient does not appear ill or toxic no acute distress On exam patient does have swelling left lower extremity patient has no redness or warmth. Imaging obtained no acute DVT noted Patient instructed to follow-up with [facility] in next 24 to 48 hours worsening symptoms return immediately Patient data External records reviewed:: [facility] previous records Clinical information provided by:: patient Social determinants that could affect healthcare access:: none Patient has the following chronic illnesses:: None How is presenting disease/condition affected by chronic disease/condition?: no chronic disease Evaluation data The following diagnostics were reviewed and interpreted by me:: radiology exam(s) Lab and/or radiology exams considered but not ordered:: Radiology obtained Interpretation Summary: Reviewed by me Medications / Prescriptions Medications or Prescriptions considered but not ordered:: No meds Medication administrations:: No meds Consultations Consultation(s) initiated? (list below): No Diagnosis Extremity Problem Differential Diagnosis: superficial thrombophlebitis, lower extremity edema and deep vein thrombosis of lower extremity Most likely diagnosis given after review of the tests above:: Dependent edema Admission Indicated Admission indicated?: not indicated Admission Request Was there a request for admission?: No Disposition Plan Disposition Plan: Discharge Discharge Attestation Discharge Attestation: The patient and all family members were given an opportunity to ask questions and understood the discharge instructions. Discharge instructions specifically effects, indications for sooner follow up or return to the emergency department, and the expected course of current diagnosis. Patient condition: Stable Discharge Plan Plan Patient Disposition: HOME (Self Care) Discharge Disposition comment: Stable Prescriptions/Referrals Prescriptions/Med Rec: No Action albuterol sulfate [Ventolin HFA] 90 mcg/actuation HFA aerosol inhaler 2 puff inhalation Q6H PRN (Reason: shortness of breath or wheezing) Qty: 8.5 0RF Referrals: Maximino Hernandez [Primary Care Provider] - 03/18/25 Problem List Clinical Impression: Lower extremity edema Patient/Caregiver Discharge Instructions Education Materials: ED Lymphedema Additional Instructions: Please follow-up with [facility] in the next 24 to 48 hours for worsening symptoms return immediately If symptoms persist or worsen return immediately for further evaluation Please elevate legs Print Language: Tamazight Stand Alone Forms: Michelle Award Info., Patient Portal Info Letter PA/ELECTRIC KNIFE OPERATOR Supervising Physician PA/ELECTRIC KNIFE OPERATOR Supervising Physician: Dr. salazar
== END 2025-03-16 16:20 | disposition home or self-care (01) ==
PROVIDERS: Emergency Provider Family Medicine; PCP Internal Medicine
DX: R60.0 Localized edema (principal)
CPT/HCPCS: 93971; 99283

== ENCOUNTER 2025-04-09 09:10 | Outpatient (AMB) | payer BC, MEDICAID, SELFPAY ==
[2025-04-09 09:36] VITALS: BP 105/72; PULSE 78; RESP 17; TEMP 36.2; O2SAT 97; BMI 32.8
--- NOTE | 2025-04-09 09:36 | AMBOBPPN_ITS ---
Vital Signs 04/09/25 09:36 Height 1.63 m Height Method Stated Weight 87.203 kg Weight Measurement Method Standing Scale BMI 32.8 BP 105/72 Blood Pressure Source Automatic Cuff Blood Pressure Location Right Upper Arm Position Sitting Respiration 17 Pulse 78 Pulse Source Monitor Temp 97.2 F Temp Source Temporal Artery Scan Pulse Oximetry (%) 97 Oxygen Delivery Method Room Air Allergies/Home Meds Allergies & Medications Allergies No Known Allergies Allergy (Verified 04/09/25 09:37) Intake Visit Data Collection New Patient or Established: Established Patient (seen at [facility] within 3 years) Reason for Visit:: Seen by Clinical Staff ONLY (RN/MA): No Senior Project Manager Required: No Do You Feel Safe at Home: Yes Authorities Contacted: N/A PCP or OBGYN visit in last 3 months: Yes Date of Last PCP or OBGYN visit: 03/16/25 Hx Now: No Are you currently on any form of Control: No Pain Present Currently: No Pain Scale Used: Schrader-Rogers/Numerical Pain scale:: 0 Smoking Status Smoking Status: Never smoker 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: Past Medical History Past Medical History: No Hx Neurological Disorders, No Hx Cardiac Disorders, No Hx Cancer, No Hx Blood Disorders, No Hx Gastrointestinal Disorders, No Hx Renal Disease, No Hx Diabetes Mellitus Type 1 and No Hx Diabetes Mellitus Type 2 Questionnaires Covid-19 Vaccine Questionnaire Has patient been vacinated for Covid-19 Have you been vacinated for Covid-19: No Social History Living Situation History Marital Status: Lives With: Family Housing: House Tobacco History Smoking Status: Never smoker Second Hand Smoke Exposure: No Alcohol History Alcohol Intake: Never Domestic Abuse History Do You Feel Safe at Home: Yes EPDS - PP Depression Screening [place] Pospartum Depression Screen I have been able to laugh and see the funny side of things: (0) As much as I always could I have looked forward with enjoyment to things: (0) As much as I ever did I have blamed myself unnecessarily when things went wrong: (0) No, never I have been anxious or worried for no good reason: (0) No, not at all I have felt scared or panicky for no very good reason: (0) No, not at all Things have been getting on top of me: (0) No, I have been coping as well as ever I have been so unhappy that I have had difficulty sleeping: (0) No, not at all I have felt sad or miserable: (0) No, not at all I have been so unhappy that I have been crying: (0) No, never The thought of harming myself has occurred to me: (0) Never EPDS completed yes Care OB Visit Log OB Flowsheet Initial Weight: Not Recorded Date -?-?-?-?-?-?-?-?-?-?-?-?- EGA Weight BP Alb Glu CTX Pres Fundal ht FHR Mov Dilation Station Effacement Hx Notes Visit Note 03/04/25 -?-?-?-?-?-?-?-?-?-?-?-?- 37w 6d 92.306 kg 112/75 occasional cephalic 37 135 active 39-year-old 3 para 2 for OBI with records. Reports movement. Denies leaking. Denies contractions. Denies social habits. Patient's for transfer from [facility]. She has not had any problems with GBS today. Discussed labor precautions and kick count twice a day. Discussed ER precautions. Return in a week for OB check. ANIBAL Calculator Estimated Delivery Date Method Current WG Current Estimate 03/19/25 LMP (Certain) 43w 0d Other Estimates 03/22/25 Ultrasound #1 42w 4d 03/19/25 Ultrasound #2 43w 0d 03/19/25 Manual 43w 0d final ANIBAL:, EFW:21% Notes Visit Date: 03/04/25 Last Updated by: Justine Feliciano CNM 39 yo . LMP 06/12/24 EDC: 03/19/25. ashma/MDI occ, OB panel: A_+,abs-, rpr;;nr, rub NI, HBSAG-,HIV-,HC-, GC/CT-, PAP: NIL/HPV+, 1 hr gtt: NIPT/AFP/Carrier screen- 1st sono: 10/04/24: 15w6, EFW: 21% HPI Interval History: 39-year-old 3 para 3 for 4-week . Patient had a vaginal March 12, 2025, patient delivered at 39 weeks. She had an uncomplicated . She desires tubal ligation. She is not sexually active. Her periods have not returned. She is bottlefeeding. She had a baby girl 7 pounds. 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 Lungs clear no wheezes. Abdomen is soft nontender. Uterus well involuted. Perineum is intact no lacerations. No swelling. Small lochia. Negative Homans' sign. 2+ DTRs. No edema no swelling. Breasts are soft General Limitations: no limitations General Appearance: alert, in no apparent distress, comfortable, cooperative, healthy appearing, well developed and well groomed Head Head exam: atraumatic, normocephalic and normal inspection ENT ENT exam: Present normal exam, normal oropharynx and mucous membranes moist Chest Chest inspection: Present normal inspection and symmetric chest wall rise Resp Respiratory exam: Present normal lung sounds bilaterally Card Cardiovascular exam: Present regular rate, normal rhythm and normal heart sounds Abdominal Abdominal exam: Present soft and normal bowel sounds Extremities Extremities exam: Present normal inspection and full ROM Psych Psychiatric exam: Present normal affect and normal mood Office Procedures OBC Clinic LOC & Office Proc's Nursing/Assessment Patient Status: Established Patient OB Clinic Nursing Assessment: Medication Reconciliation, Update PMH in EMR and Vital Signs OB Clinic Coordination of Care: Complex Care and Chronic Disease 1-5, Education Complex Pt/Fam, Consent,records obtained, informed consent and Staff clarify orders Established Patient Charge Established Patient Point Assignment: 90 Established Patient Point Charge: EP Level 3 (80-115) Antepartum Initial or Follow-up Antepartum Initial Visit: Yes Assessment & Plan Diagnosis / Problem List (1) Routine Follow-Up: (2) 2 weeks follow-up: Status: Acute Plan I signed tubal consent. Schedule with OB for tubal consult and scheduling of tubal. No sex. I advised discussed using Depo while she waits to have her tubal scheduled. Discussed diet and exercise. Walk 40 minutes a day. Continue prenatals. Keep appointment with OB for tubal consent Care Reviewed delivery summary and any complications: Yes Uterus involuted to: 3 below umb Perineal / incision healing noted: Yes Screened for depression: Yes Depression counseling provided: No Discussed family planning & contraception: Yes Contraception planned: BTL Counseling on safe resumption of sexual activity: Yes Counseling on gradual excercise: Yes Discussed and concerns (describe), provided support: No Referred to radiology specialist: No Counseled on good nutrition, hydration, and self care: Yes Reviewed vaccine status: No Chronic & current problems reconciled on problem list: Yes care discussed; questions answered: feeding Follow up: routine/prn Additional counseling & anticipatory guidance provided: BTL consent, no sex, continue PNV. schedule with OB for BTL consult (FP) Tobacco Smoking Status: Never smoker
== END 2025-04-09 10:10 | disposition home or self-care (01) ==
LOC: HODSOBC 09:10
PROVIDERS: PCP Physician Assistant; Referring Provider Physician Assistant; Supervising Provider Advanced Practice Midwife; Visit Provider Advanced Practice Midwife
DX: Z39.2 Encounter for routine postpartum follow-up (principal)
CPT/HCPCS: 59425; 99213; G0463